=== PATIENT | male | born 1985 | race American Indian/Alaskan Native ===

== ENCOUNTER 2018-04-16 14:22 | Emergency (ER) | payer BC ==
--- NOTE | 2018-04-16 14:57 | Emergency Department Report ---
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 Patient states pain started approximately month ago got worse yesterday after working. Patient felt a cracking sensation in his back while walking yesterday. He denies any radiation of the pain down his legs and also denies any hematuria or penile discharge testicular pain or sexual dysfunction. Patient also states is been no fever nausea vomiting diarrhea at this time. Severity scale (0 -10): 8 Improves With: other (rest) Worsens With: movement - Related Data Previous Rx's Medication Instructions Recorded Last Taken Type Ciprofloxacin HCl [Cipro] 500 mg PO Q12H #20 tab 02/25/14 Unknown Rx Cyclobenzaprine [Flexeril 10 MG 10 mg PO TID PRN #10 tablet 05/23/14 Unknown Rx TAB] Ibuprofen [Motrin 800 MG tab] 800 mg PO Q8H PRN #30 tablet 05/23/14 Unknown Rx traMADol [Ultram 50 MG tab] 50 mg PO Q4HR PRN #10 tablet 05/23/14 Unknown Rx HYDROcodone/APAP 5-325 [[place] 1 each PO Q6HR PRN #12 tablet 05/30/14 Unknown Rx 5/325] Methocarbamol [Robaxin] 750 mg PO Q8H PRN #30 tablet 05/30/14 Unknown Rx Ibuprofen [Motrin] 800 mg PO Q8HR PRN #20 tablet 04/16/18 Unknown Rx methOCARBAMOL [Robaxin TAB] 500 mg PO Q6H PRN #15 tablet 04/16/18 Unknown Rx traMADol [Ultram] 50 mg PO Q6HR PRN #10 tablet 04/16/18 Unknown Rx Allergies Allergy/AdvReac Type Severity Reaction Status Date / Time No Known Allergies Allergy Verified 02/25/14 10:09 ED Review of Systems ROS: Stated complaint: LOWER BACK PAIN Other details as noted in HPI Comment: All other systems reviewed and negative ED Past Medical Hx Family history: no significant family history ED Back Pain Physical Exam - Exam General: Vital signs noted. No distress. Alert and acting appropriately. Back/Abdomen: Yes Perilumbar Tenderness (left side), No Abdominal Tenderness, No Perithoracic Tenderness, No Sacroiliac Tenderness, No Flank Tenderness, No Straight Leg Raise Pain Neuro: Yes Normal Sensation, Yes Normal DTR's, Yes Normal Gait, No Motor Weakness ED Course Vital Signs 04/16/18 14:29 Temperature 98.6 F Pulse Rate 65 Respiratory 18 Rate Blood Pressure 129/83 O2 Sat by Pulse 97 Oximetry ED Medical Decision Making - Medical Decision Making Patient most likely has a herniated disc. Patient also likely having some muscle spasms secondary to this. Patient was started on meds for symptomatic relief and orthopedic follow-up Critical care attestation.: If time is entered above; I have spent that time in minutes in the direct care of this critically ill patient, excluding procedure time. ED Disposition Clinical Impression: Lumbar spine strain Qualifiers: Encounter type: initial encounter Qualified Code(s): S39.012A - Strain of muscle, fascia and tendon of lower back, initial encounter Disposition: DC-01 TO HOME OR SELFCARE Is pt being admited?: No Does the pt Need Aspirin: No Condition: Stable Instructions: Low Back Strain (ED) Referrals: HANNA MALHOTRA MD [Staff Physician] - 3-5 Days Time of Disposition: 14:57
[2018-04-16 15:15] VITALS: BP 126/74
== END 2018-04-16 15:11 | disposition home or self-care (01) ==
LOC: ED 14:22
DX: S39.012A Strain of muscle, fascia and tendon of lower back, initial encounter (principal); X58.XXXA Exposure to other specified factors, initial encounter; Y93.89 Activity, other specified; Y92.89 Other specified places as the place of occurrence of the external cause; Y99.8 Other external cause status
CPT/HCPCS: 99282

== ENCOUNTER 2019-03-31 05:33 | Emergency (ER) | payer SELFPAY ==
[2019-03-31] MEDS ORDERED: IBUPROFEN PO ONE (07:34)
[2019-03-31] MEDS ORDERED: ZANAFLEX PO ONE (07:35)
--- NOTE | 2019-03-31 07:50 | Emergency Department Report ---
ED General Adult HPI - General Chief complaint: Dyspnea/Respdistress Stated complaint: ASTHMA Time Seen by Provider: 03/31/19 07:34 Source: patient Mode of arrival: Ambulatory Limitations: No Limitations - History of Present Illness Initial comments: 33-year-old -[place] male presents to the emergency room for shortness of breath since with a productive cough. Patient states that he has chest tightness in the morning across his chest and it hurts to take a deep breath. 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 Patient has a past medical history of asthma and has been using his inhalers as instructed. Patient denies any fever chills no nausea no vomiting no radiation of pain. Patient denies any recent travels. Onset/Timin -: week(s) Location: chest Radiation: non-radiation Severity scale (0 -10): 8 Quality: aching, other (tightness) Associated Symptoms: cough Treatments Prior to Arrival: NSAID - Related Data Previous Rx's Medication Instructions Recorded Last Taken Type Ciprofloxacin HCl [Cipro] 500 mg PO Q12H #20 tab 02/25/14 Unknown Rx Cyclobenzaprine [Flexeril 10 MG 10 mg PO TID PRN #10 tablet 05/23/14 Unknown Rx TAB] Ibuprofen [Motrin 800 MG tab] 800 mg PO Q8H PRN #30 tablet 05/23/14 Unknown Rx traMADol [Ultram 50 MG tab] 50 mg PO Q4HR PRN #10 tablet 05/23/14 Unknown Rx HYDROcodone/APAP 5-325 [[place] 1 each PO Q6HR PRN #12 tablet 05/30/14 Unknown Rx 5/325] methOCARBAMOL [Robaxin] 750 mg PO Q8H PRN #30 tablet 05/30/14 Unknown Rx Ibuprofen [Motrin] 800 mg PO Q8HR PRN #20 tablet 04/16/18 Unknown Rx methOCARBAMOL [Robaxin TAB] 500 mg PO Q6H PRN #15 tablet 04/16/18 Unknown Rx traMADol [Ultram] 50 mg PO Q6HR PRN #10 tablet 04/16/18 Unknown Rx ALBUTEROL Inhaler(NF) [VENTOLIN 1 puff IH Q4-6H PRN #1 inha 07/03/18 Unknown Rx Inhaler(NF)] Amoxicillin/Potassium Clav 1 each PO BID #10 tablet 07/03/18 Unknown Rx [Augmentin 875-125 Tablet] Fluticasone [Flonase] 1 spray NS QDAY #1 bottle 07/03/18 Unknown Rx Prednisone [predniSONE 10 mg 10 mg PO .TAPER #1 tab.ds.pk 07/03/18 Unknown Rx (6-Day Pack, 21 Tabs)] Ibuprofen [Motrin 800 MG tab] 800 mg PO Q8HR PRN #21 tablet 03/31/19 Unknown Rx tiZANidine [Zanaflex 4mg TAB] 4 mg PO Q8H PRN #21 tablet 03/31/19 Unknown Rx Allergies Allergy/AdvReac Type Severity Reaction Status Date / Time No Known Allergies Allergy Verified 07/03/18 15:35 ED Review of Systems ROS: Stated complaint: ASTHMA Other details as noted in HPI Comment: All other systems reviewed and negative ED Past Medical Hx - Past Medical History Previous Medical History?: Yes Hx Hypertension: No Hx CVA: No Hx Heart Attack/AMI: No Hx Congestive Heart Failure: No Hx Diabetes: No Hx Deep Vein Thrombosis: No Hx Pulmonary Embolism: No Hx GERD: No Hx Liver Disease: No Hx Sickle Cell Disease: No Hx Arthritis: No Hx Headaches / Migraines: No Hx Seizures: No Hx Kidney Stones: No Hx Psychiatric Treatment: No Hx Asthma: Yes Hx COPD: No Hx Tuberculosis: No Hx Dementia: No Hx HIV: No - Surgical History Past Surgical History?: No Hx Coronary Stent: No Hx Open Heart Surgery: No Hx Pacemaker: No Hx Internal Defibrillator: No Hx Cholecystectomy: No Hx Appendectomy: No Hx Breast Surgery: No - Social History Smoking Status: Never Smoker Substance Use Type: None - Medications Home Medications: Home Medications Medication Instructions Recorded Confirmed Last Taken Type Ciprofloxacin HCl [Cipro] 500 mg PO Q12H #20 tab 02/25/14 Unknown Rx Cyclobenzaprine [Flexeril 10 MG 10 mg PO TID PRN #10 tablet 05/23/14 Unknown Rx TAB] Ibuprofen [Motrin 800 MG tab] 800 mg PO Q8H PRN #30 tablet 05/23/14 Unknown Rx traMADol [Ultram 50 MG tab] 50 mg PO Q4HR PRN #10 tablet 05/23/14 Unknown Rx HYDROcodone/APAP 5-325 [[place] 1 each PO Q6HR PRN #12 tablet 05/30/14 Unknown Rx 5/325] methOCARBAMOL [Robaxin] 750 mg PO Q8H PRN #30 tablet 05/30/14 Unknown Rx Ibuprofen [Motrin] 800 mg PO Q8HR PRN #20 tablet 04/16/18 Unknown Rx methOCARBAMOL [Robaxin TAB] 500 mg PO Q6H PRN #15 tablet 04/16/18 Unknown Rx traMADol [Ultram] 50 mg PO Q6HR PRN #10 tablet 04/16/18 Unknown Rx ALBUTEROL Inhaler(NF) [VENTOLIN 1 puff IH Q4-6H PRN #1 inha 07/03/18 Unknown Rx Inhaler(NF)] Amoxicillin/Potassium Clav 1 each PO BID #10 tablet 07/03/18 Unknown Rx [Augmentin 875-125 Tablet] Fluticasone [Flonase] 1 spray NS QDAY #1 bottle 07/03/18 Unknown Rx Prednisone [predniSONE 10 mg 10 mg PO .TAPER #1 tab.ds.pk 07/03/18 Unknown Rx (6-Day Pack, 21 Tabs)] Ibuprofen [Motrin 800 MG tab] 800 mg PO Q8HR PRN #21 tablet 03/31/19 Unknown Rx tiZANidine [Zanaflex 4mg TAB] 4 mg PO Q8H PRN #21 tablet 03/31/19 Unknown Rx ED Physical Exam - General Limitations: No Limitations - Head Head exam: Present: atraumatic, normocephalic - Eye Eye exam: Present: normal appearance, PERRL, EOMI - ENT ENT exam: Present: mucous membranes moist - Neck Neck exam: Present: normal inspection, full ROM. Absent: tenderness - Respiratory Respiratory exam: Present: normal lung sounds bilaterally, chest wall tenderness. Absent: respiratory distress, wheezes, rales - Cardiovascular Cardiovascular Exam: Present: regular rate, normal rhythm. Absent: systolic murmur, diastolic murmur, rubs, gallop - GI/Abdominal GI/Abdominal exam: Present: soft, normal bowel sounds - Rectal Rectal exam: Present: deferred - Back Exam Back exam: Present: normal inspection, full ROM - Neurological Exam Neurological exam: Present: alert, oriented X3, normal gait - Psychiatric Psychiatric exam: Present: normal affect, normal mood - Skin Skin exam: Present: warm, dry, intact, normal color. Absent: rash ED Medical Decision Making - Radiology Data Radiology results: report reviewed Patient: MARGIE MASON MR#: [id number] : 1985 Acct:[id number] Age/Sex: 33 / M ADM Date: 03/31/19 Loc: ED Attending Dr: Ordering Physician: EMILY WADE Date of Service: 03/31/19 Procedure(s): XR chest routine 2V Accession Number(s): [id number] cc: EMILY WADE Fluoro Time In Minutes: CHEST 2 VIEWS INDICATION: chest tightness most with deep breath. Chest pain for 6 days. COMPARISON: FINDINGS: Support devices: None. Heart: Within normal limits. Lungs/pleura: No acute air space or interstitial disease. No pneumothorax. Additional findings: None. IMPRESSION: No acute findings. Signer Name: Maxim Ibarra Jr, MD Signed: 03/31/2019 8:57 AM Workstation Name: [id number] Transcribed By: TTR Dictated By: MAXIM IBARRA JR, MD Electronically Authenticated By: MAXIM IBARRA JR, MD Signed Date/Time: 03/31/19856 DD/ 5 TD/TT: - Medical Decision Making 33-year-old -[place] male presents to the emergency room for shortness of breath since with a productive cough. Patient states that he has chest tightness in the morning across his chest and it hurts to take a deep breath. 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 Patient has a past medical history of asthma and has been using his inhalers as instructed. Patient denies any fever chills no nausea no vomiting no radiation of pain. Patient denies any recent travels. X-rays ordered Ibuprofen 800 mg and Zanaflex 4 mg ordered. Critical care attestation.: If time is entered above; I have spent that time in minutes in the direct care of this critically ill patient, excluding procedure time. ED Disposition Clinical Impression: Chest wall tenderness Disposition: DC-01 TO HOME OR SELFCARE Is pt being admited?: No Does the pt Need Aspirin: No Condition: Stable Instructions: Chest Pain (ED), Costochondritis (ED) Additional Instructions: Chest x-ray was negative for any acute findings. Please continue taking ibuprofen and Zanaflex as needed for chest wall tenderness. Follow up with her primary care provider if his symptoms persist or gets worse. Prescriptions: Ibuprofen [Motrin 800 MG tab] 800 mg PO Q8HR PRN #21 tablet PRN Reason: Pain , Severe (7-10) tiZANidine [Zanaflex 4mg TAB] 4 mg PO Q8H PRN #21 tablet PRN Reason: Pain , Severe (7-10) Referrals: JEOVANY WILSON MD [Primary Care Provider] - 3-5 Days Forms: Work/School Release Form(ED)
--- NOTE | 2019-03-31 09:02 | XRay Report ---
CHEST 2 VIEWS INDICATION: chest tightness most with deep breath. Chest pain for 6 days. COMPARISON: FINDINGS: Support devices: None. Heart: Within normal limits. Lungs/pleura: No acute air space or interstitial disease. No pneumothorax. Additional findings: None. IMPRESSION: No acute findings. Signer Name: Maxim Ibarra Jr, MD Signed: 03/31/2019 8:57 AM Workstation Name: [id number]
[2019-03-31 09:33] VITALS: BP 134/91
== END 2019-03-31 09:35 | disposition home or self-care (01) ==
LOC: ED 05:33
DX: R07.89 Other chest pain (principal); J45.909 Unspecified asthma, uncomplicated; Z79.899 Other long term (current) drug therapy
CPT/HCPCS: 71046; 99283